=== PATIENT | female | born 1970 | race African-American/Black ===

== ENCOUNTER → 2019-11-21 | Outpatient (CLI) | payer OTHER ==
--- NOTE | 2019-11-21 15:40 | 2DMMODE ---
[place] [address] 2 D/M-MODE ECHOCARDIOGRAM Name: TATI GARCÍA Room: [facility]#: [id number] Admission: 11/21/19 Attend Phys: Physician not on s Discharge: Date of : 72 Date of Service: 11/21/19 1538 Report #: [id number] THIS REPORT FOR: cc: Best Mckenna MD, David B. MD Blick, David R. MD [facility] ~ APPROVED REPORT Study performed: 11/21/2019 09:40:55 EXAM: Comprehensive 2D, Doppler, and color-flow Echocardiogram Patient Location: Out-Patient BSA: 2.11 HR: 83 bpm BP: 130/90 mmHg Other Information Study Quality: Fair Indications Murmur 2D Dimensions IVSd: 15.90 (7-11mm) LVOT Diam: 18.18 (18-24mm) LVDd: 40.11 mm PWd: 11.23 (7-11mm) Ascending Ao: 29.55 (22-36mm) LVDs: 28.15 (25-40mm) Aortic Root: 28.74 mm Volumes Left Atrial Volume (Systole) LA ESV Index: 15.80 mL/m2 Aortic Valve AoV Peak Aren.: 1.30 m/s AO Peak Gr.: 6.76 mmHg LVOT Max P.82 mmHg AO Mean Gr.: 3.56 mmHg LVOT Mean P.72 mmHg LVOT Max V: 0.98 m/s AO V2 VTI: 24.38 cm LVOT Mean V: 0.59 m/s DANIEL (VTI): 2.17 cm2 LVOT V1 VTI: 20.37 cm Mitral Valve E/A Ratio: 0.89 [place] [address] 2 D/M-MODE ECHOCARDIOGRAM Name: [facility]ATI GARCÍA [id number] Admission: 11/21/19 Attend Phys: Physician not on s Discharge: Date of : 72 Date of Service: 11/21/19 1538 Report #: [id number] MV Decel. Time: 163.68 ms MV E Max Aren.: 0.71 m/s MV PHT: 47.47 ms MVA (PHT): 4.63 cm2 TDI E/Lateral E': 11.83 E/Medial E': 10.14 Medial E' Aren.: 0.07 m/s Lateral E' Aren.: 0.06 m/s Pulmonary Valve PV Peak Aren.: 0.95 m/s PV Peak Gr.: 3.58 mmHg Left Ventricle The left ventricle is normal size. There is normal LV segmental wall motion. Mild concentric left ventricular hypertrophy. Left ventricular systolic function is normal. The left ventricular ejection fraction is within the normal range. LVEF is 60-65%. Grade I - abnormal relaxation pattern. Right Ventricle The right ventricle is normal size. The right ventricular systolic function is normal. Atria The left atrium size is normal. The right atrium size is normal. Aortic Valve The aortic valve is normal in structure. Trace aortic regurgitation. There is no aortic valvular stenosis. Mitral Valve Mitral valve leaflets are mildly thickened. Trace mitral regurgitation. No evidence of mitral valve stenosis. Tricuspid Valve The tricuspid valve is normal in structure. There is no tricuspid valve regurgitation noted. Pulmonic Valve The pulmonary valve is normal in structure. There is no pulmonic valvular regurgitation. Great Vessels The aortic root is normal in size. IVC is normal [place] [address] 2 D/M-MODE ECHOCARDIOGRAM Name: TATI GARCÍA Room: [facility]#: [id number] Admission: 11/21/19 Attend Phys: Physician not on s Discharge: Date of : 72 Date of Service: 11/21/19 1538 Report #: [id number] collapses >50% with inspiration. Pericardium There is no pericardial effusion. <Conclusion> Mild concentric left ventricular hypertrophy. LVEF is 60-65%. <ELECTRONICALLY SIGNED> By: Best Lynn MD, [facility] 11/21/19 1538 [id number] Best Lynn MD, [facility] /INF
== END ==
LOC: M.CRD 09:00
DX: I34.8 Other nonrheumatic mitral valve disorders (principal); I51.7 Cardiomegaly

== ENCOUNTER 2020-11-05 15:16 | Emergency (ER) | payer OTHER ==
[~2020-11-05] VITALS: Ht 162.6 cm; Wt 110.2 kg
[2020-11-05] MEDS ORDERED: HYDROCHLOROTH12.5 M1 (15:29)
[2020-11-05] MEDS ORDERED: NORVASC 2.5 MG2.5 M1 (15:30)
[2020-11-05] MEDS ORDERED: NORCO5 PO (18:34)
[2020-11-05] MEDS ORDERED: CYCLOBENZAPRINE5 MG PO (18:34)
[2020-11-05 18:49] VITALS: BP 137/88
== END 2020-11-05 18:50 | disposition home or self-care (01) ==
LOC: M.ERS 15:16
DX: M54.6 Pain in thoracic spine (principal); M54.2 Cervicalgia; M54.5 Low back pain; I10 Essential (primary) hypertension; Z90.710 Acquired absence of both cervix and uterus; W01.0XXA Fall on same level from slipping, tripping and stumbling without subsequent striking against object, initial encounter; Y93.89 Activity, other specified; Y92.89 Other specified places as the place of occurrence of the external cause; Y99.8 Other external cause status

== ENCOUNTER → 2020-11-28 | Outpatient (CLI) | payer OTHER ==
[~2020-11-28] MED LIST: CYCLOBENZAPRINE5 MG PO; HYDROCHLOROTH12.5 M1; NORCO5 PO; NORVASC 2.5 MG2.5 M1
== END ==
LOC: M.RAD 11-26 16:59
PROVIDERS: ATTEND Family Medicine
DX: M53.3 Sacrococcygeal disorders, not elsewhere classified (principal)